=== PATIENT | female | born 1960 | race Caucasian/White ===

== ENCOUNTER → 2016-06-25 | Outpatient (CLI) | payer BC ==
[~2016-06-25] MED LIST: BAYER ASPIRIN C81 MG PO; LIPITOR40 MG PO; LISINOPRIL AND1 TAB PO; LISINOPRIL-HYDR1 TA3 PO
[2016-06-25 12:25] LABS: ALBUMIN 4.1 gm/dl (3.1-4.5); BILIRUBIN, DIRECT 0.2 mg/dL (0.0-0.2); BILIRUBIN, TOTAL 0.8 mg/dl (0.2-1.0); TOTAL PROTEIN 7.7 gm/dL (6.4-8.2)
[2016-06-26 16:10] LABS: CK-BB 0 % (0); CK-MB 0 % (0-3); CK-MM 99 % (97-100)
== END | disposition home or self-care (01) ==
LOC: LAB 05-16 14:48
PROVIDERS: Internal Medicine Cardiovascular Disease
DX: Z79.899 Other long term (current) drug therapy (principal)

== ENCOUNTER → 2019-05-03 | Outpatient (CLI) | payer OTHER | END | disposition home or self-care (01) | LOC: CARD 08:29 | DX: R00.1 Bradycardia, unspecified (principal) ==

== ENCOUNTER → 2019-05-07 | Outpatient (CLI) | payer OTHER | END | disposition home or self-care (01) | LOC: US 03:03 | DX: K76.0 Fatty (change of) liver, not elsewhere classified (principal); R94.5 Abnormal results of liver function studies ==

== ENCOUNTER → 2019-05-10 | Outpatient (CLI) | payer OTHER ==
[2019-05-10 13:05] LABS: THYROID STIM HORMONE (HS) 1.42 uIU/ml (0.358-4.75)
== END | disposition home or self-care (01) ==
LOC: LAB 10:46
PROVIDERS: Nurse Practitioner Family
DX: L65.9 Nonscarring hair loss, unspecified (principal)

== ENCOUNTER → 2021-01-15 | Outpatient (CLI) | payer OTHER ==
[2021-01-15 10:08] LABS: BASO % 0.4 % (0.0-1.0); EOS # 0.1 10*3/uL (0.0-0.4); HEMATOCRIT 40.9 % (37.0-47.0); LYMPH # 1.8 10*3/uL (1.3-4.4); LYMPH % 26.8 % (27.0-41.0); MEAN CELL VOLUME 93.4 fl (81.0-99.0); MEAN CORPUSCULAR HGB 31.3 pg (27.0-31.0); MEAN CORPUSCULAR HGB CONC 33.5 g/dl (33.0-37.0); MEAN PLATELET VOLUME 10.9 fl (9.6-12.3); MONO # 0.7 10*3/uL (0.1-1.0); MONO % 10.2 % (3.0-9.0); NEUT # 4.1 10*3/uL (2.3-7.9); PLATELET COUNT AUTOMATED 227 10*3/uL (130-400); RED BLOOD COUNT 4.38 10*6/uL (4.10-5.10); RED CELL DISTRI WIDTH 13.1 % (0-14.5); WHITE BLOOD COUNT 6.8 10*3/uL (4.8-10.8)
[2021-01-15 10:26] LABS: ALBUMIN 3.9 gm/dl (3.1-4.5); ALKALINE PHOSPHATASE 77 U/L (45-117); BUN 9 mg/dl (7-24); CHLORIDE 108 mmol/L (98-107); CHOLESTEROL 225 mg/dL (<200); CREATININE 0.79 mg/dL (0.55-1.02); LDL CHOLESTEROL 153 mg/dL (9-159); SGOT/AST 29 IU/L (3-35); SGPT/ALT 69 U/L (12-78); SODIUM 140 mmol/L (136-145); TOTAL PROTEIN 7.9 gm/dL (6.4-8.2); TRIGLYCERIDES 141 mg/dl (<150); URIC ACID 6.9 mg/dL (2.6-6.0)
[2021-01-16 04:06] LABS: CREATINE KINASE, TOTAL, SERUM 195 U/L (32-182)
[2021-01-16 11:07] LABS: CREATININE,URINE 69.7 mg/dL (Not Estab.)
[2021-01-16 15:07] LABS: CK-BB 0 % (0); CK-MB 0 % (0-3); CK-MM 100 % (97-100); MACRO TYPE 1 0 % (Not Observed); MACRO TYPE 2 0 % (Not Observed)
== END | disposition home or self-care (01) ==
LOC: LAB 09:35
PROVIDERS: ATTEND Family Medicine
DX: I10 Essential (primary) hypertension (principal)

== ENCOUNTER → 2021-02-01 | Outpatient (CLI) | payer OTHER | END | disposition home or self-care (01) | LOC: MAMMO 00:43 | PROVIDERS: ATTEND Family Medicine | DX: Z12.31 Encounter for screening mammogram for malignant neoplasm of breast (principal) ==

== ENCOUNTER → 2022-01-14 | Outpatient (CLI) | payer OTHER ==
[2022-01-14 11:19] LABS: BASO % 0.5 % (0.0-1.0); EOS # 0.1 10*3/uL (0.0-0.4); EOS % 1.3 % (1.0-4.0); HEMATOCRIT 42.5 % (37.0-47.0); LYMPH % 31.7 % (27.0-41.0); MEAN CORPUSCULAR HGB 31.1 pg (27.0-31.0); MEAN CORPUSCULAR HGB CONC 33.4 g/dl (33.0-37.0); MEAN PLATELET VOLUME 10.8 fl (9.6-12.3); MONO # 0.5 10*3/uL (0.1-1.0); MONO % 8.6 % (3.0-9.0); NEUT # 3.6 10*3/uL (2.3-7.9); NEUT % 57.3 % (47.0-73.0); PLATELET COUNT AUTOMATED 220 10*3/uL (130-400); RED BLOOD COUNT 4.57 10*6/uL (4.10-5.10); RED CELL DISTRI WIDTH 12.6 % (0-14.5); WHITE BLOOD COUNT 6.3 10*3/uL (4.8-10.8)
[2022-01-14 11:40] LABS: BUN 12 mg/dl (7-24); CHLORIDE 108 mmol/L (98-107); CHOLESTEROL 205 mg/dL (<200); CREATININE 0.72 mg/dL (0.55-1.02); POTASSIUM 3.9 mmol/L (3.5-5.1); SGOT/AST 32 IU/L (3-35); SGPT/ALT 79 U/L (12-78); SODIUM 140 mmol/L (136-145); TRIGLYCERIDES 133 mg/dl (<150); URIC ACID 6.8 mg/dL (2.6-6.0)
[2022-01-14 11:45] LABS: ALKALINE PHOSPHATASE 85 U/L (45-117); FREE T4 1.07 ng/dl (0.76-1.46); LDL CHOLESTEROL 141 mg/dL (9-159); TOTAL PROTEIN 7.8 gm/dL (6.4-8.2)
[2022-01-15 04:59] LABS: CREATINE KINASE, TOTAL, SERUM 233 U/L (32-182)
[2022-01-15 05:06] LABS: RHEUMATOID FACTOR <10.0 IU/mL (<14.0)
[2022-01-15 10:07] LABS: CREATININE,URINE 77.3 mg/dL (Not Estab.)
[2022-01-15 15:07] LABS: CK-BB 0 % (0); CK-MB 0 % (0-3); CK-MM 100 % (97-100); MACRO TYPE 1 0 % (Not Observed); MACRO TYPE 2 0 % (Not Observed)
== END | disposition home or self-care (01) ==
LOC: LAB 10:43
PROVIDERS: ATTEND Family Medicine
DX: Z00.00 Encounter for general adult medical examination without abnormal findings (principal); I10 Essential (primary) hypertension; M25.50 Pain in unspecified joint; Z79.899 Other long term (current) drug therapy

== ENCOUNTER → 2024-01-20 | Outpatient (CLI) | payer OTHER ==
[2024-01-20 07:54] LABS: BASO # 0.1 10*3/uL (0.0-0.1); BASO % 0.8 % (0.0-1.0); EOS # 0.1 10*3/uL (0.0-0.4); EOS % 1.7 % (1.0-4.0); HEMATOCRIT 40.3 % (37.0-47.0); MEAN CORPUSCULAR HGB 31.3 pg (27.0-31.0); MEAN PLATELET VOLUME 10.3 fl (9.6-12.3); MONO # 0.6 10*3/uL (0.1-1.0); MONO % 8.8 % (3.0-9.0); NEUT % 62.2 % (47.0-73.0); PLATELET COUNT AUTOMATED 208 10*3/uL (130-400); RED BLOOD COUNT 4.38 10*6/uL (4.10-5.10); RED CELL DISTRI WIDTH 12.9 % (0-14.5); WHITE BLOOD COUNT 6.5 10*3/uL (4.8-10.8)
[2024-01-20 08:00] LABS: BILIRUBIN Negative (Negative); BLOOD 1+ (Negative); CLARITY Cloudy (Clear); COLOR Yellow (Yellow); GLUCOSE Negative (Negative); KETONE Negative (Negative); LEUKO ESTERASE 3+ (Negative); NITRITE Negative (Negative); UROBILINOGEN 0.2 E.U./dl (0.0-1.0)
[2024-01-20 08:37] LABS: ALKALINE PHOSPHATASE 74 U/L (46-116); BUN 21 mg/dl (9-23); CHLORIDE 108 mmol/L (98-107); CHOLESTEROL 215 mg/dL (<200); FREE T4 1.16 ng/dl (0.89-1.76); LDL CHOLESTEROL 139 mg/dL (9-159); POTASSIUM 3.6 mmol/L (3.4-5.1); SGPT/ALT 17 U/L (5-49); TOTAL PROTEIN 7.4 gm/dL (6.0-8.0); TRIGLYCERIDES 150 mg/dl (<150); URIC ACID 8.3 mg/dL (3.1-7.8)
[2024-01-20 08:47] LABS: VITAMIN D, 25-HYDROXY 32.4 ng/mL (30-100)
[2024-01-20 09:05] LABS: BACTERIA 2+; EPITHELIAL CELLS 41-50; WBC TNTC wbc/hpf (0-5)
== END | disposition home or self-care (01) ==
LOC: LAB 07:31
PROVIDERS: ATTEND Family Medicine
DX: I10 Essential (primary) hypertension (principal); M25.50 Pain in unspecified joint

== ENCOUNTER 2024-09-25 02:11 | Inpatient (IN) | payer OTHER ==
[~2024-09-25] VITALS: Ht 167.6 cm; Wt 99.9 kg
[2024-09-25 02:25] VITALS: BP 155/92
[2024-09-25 02:48] LABS: BASO # 0.0 10*3/uL (0.0-0.1); BASO % 0.5 % (0.0-1.0); EOS # 0.1 10*3/uL (0.0-0.4); EOS % 1.7 % (1.0-4.0); MEAN CELL VOLUME 90.2 fl (81.0-99.0); MEAN CORPUSCULAR HGB 30.8 pg (27.0-31.0); MEAN PLATELET VOLUME 10.6 fl (9.6-12.3); MONO # 0.7 10*3/uL (0.1-1.0); MONO % 10.3 % (3.0-9.0); NEUT # 3.7 10*3/uL (2.3-7.9); NEUT % 57.6 % (47.0-73.0); NUCLEATED RED BLOOD CELL 0.0 % (0.0-0.0); NUCLEATED RED BLOOD CELL 0.0 10*3/uL (0.0-0.0); PLATELET COUNT AUTOMATED 217 10*3/uL (130-400); RED CELL DISTRI WIDTH 12.9 % (0-14.5)
[2024-09-25 02:59] LABS: ACT PARTIAL THROMBO TIME 25.5 SECONDS (20.0-32.1)
[2024-09-25 03:09] LABS: BUN 13 mg/dl (9-23); SGPT/ALT 28 U/L (5-49)
[2024-09-25] MEDS ORDERED: POTASSIUM CHLORIDE 20 MEQ TAB PO ONE (05:35)
[2024-09-25] MEDS ORDERED: COZAAR25 M1 PO (06:13)
[2024-09-25 06:20] VITALS: BP 147/64
[2024-09-25] MEDS ORDERED: HYDROCHLOROTHIA25 M1 PO (06:21)
[2024-09-25] MEDS ORDERED: BISACODYL 5 MG TAB PO PRN (06:35)
[2024-09-25] MEDS ORDERED: ACETAMINOPHEN 325 MG TAB PO PRN (06:35)
[2024-09-25] MEDS ORDERED: Ondansetron Hydrochloride 4 MG/2 ML VIAL IV PRN (06:35)
[2024-09-25] MEDS ORDERED: Acetaminophen/Hydrocodone 5 MG/325 MG TABLET PO PRN (06:35)
[2024-09-25] MEDS ORDERED: ACETAMINOPHEN 650 MG SUPP R PRN (06:35)
[2024-09-25] MEDS ORDERED: TEMAZEPAM 15 MG CAP PO PRN (06:35)
[2024-09-25] MEDS ORDERED: hydroCHLOROthiazide 25 MG TAB PO SCH (10:00)
[2024-09-25] MEDS ORDERED: ASPIRIN, CHEWABLE 81 MG TAB PO SCH (10:00)
[2024-09-25 10:09] VITALS: BP 148/72
[2024-09-25] MEDS ORDERED: POTASSIUM CHLORIDE 20 MEQ TAB PO SCH (10:45)
[2024-09-25] MEDS ORDERED: IOHEXOL 350 MG/ML 100 ML VIAL IV ONE (11:25)
[2024-09-25] MEDS ORDERED: SODIUM CHLORIDE 0.9% 100 ML BAG IV ONE (11:25)
[2024-09-25 18:05] VITALS: BP 162/87
[2024-09-25 20:00] VITALS: BP 157/76
[2024-09-25] MEDS ORDERED: ATORVASTATIN CALCIUM 40 MG TABLET PO SCH (22:00)
[2024-09-26] VITALS: BP 150/71
[2024-09-26 06:23] LABS: BASO # 0.0 10*3/uL (0.0-0.1); BASO % 0.6 % (0.0-1.0); EOS # 0.1 10*3/uL (0.0-0.4); EOS % 1.9 % (1.0-4.0); MEAN CELL VOLUME 91.9 fl (81.0-99.0); MEAN CORPUSCULAR HGB 30.9 pg (27.0-31.0); MEAN PLATELET VOLUME 10.9 fl (9.6-12.3); MONO # 0.7 10*3/uL (0.1-1.0); MONO % 10.5 % (3.0-9.0); NEUT # 3.7 10*3/uL (2.3-7.9); NEUT % 52.7 % (47.0-73.0); NUCLEATED RED BLOOD CELL 0.0 % (0.0-0.0); NUCLEATED RED BLOOD CELL 0.0 10*3/uL (0.0-0.0); PLATELET COUNT AUTOMATED 205 10*3/uL (130-400); RED CELL DISTRI WIDTH 13.1 % (0-14.5)
[2024-09-26 06:46] LABS: BUN 13 mg/dl (9-23); FREE T4 1.08 ng/dl (0.89-1.76); LDL CHOLESTEROL 123 mg/dL (9-159); SGPT/ALT 23 U/L (5-49)
[2024-09-26 07:36] LABS: VITAMIN D, 25-HYDROXY 42.2 ng/mL (30-100)
[2024-09-26 08:00] VITALS: BP 151/63
[2024-09-26 12:00] VITALS: BP 147/58
[2024-09-26 16:00] VITALS: BP 151/76
[2024-09-26 20:00] VITALS: BP 158/66
[2024-09-27 06:25] LABS: BASO # 0.0 10*3/uL (0.0-0.1); BASO % 0.6 % (0.0-1.0); EOS # 0.1 10*3/uL (0.0-0.4); EOS % 1.9 % (1.0-4.0); MEAN CELL VOLUME 92.3 fl (81.0-99.0); MEAN CORPUSCULAR HGB 31.0 pg (27.0-31.0); MEAN PLATELET VOLUME 10.8 fl (9.6-12.3); MONO # 0.7 10*3/uL (0.1-1.0); MONO % 9.9 % (3.0-9.0); NEUT # 3.8 10*3/uL (2.3-7.9); NEUT % 56.2 % (47.0-73.0); NUCLEATED RED BLOOD CELL 0.0 % (0.0-0.0); NUCLEATED RED BLOOD CELL 0.0 10*3/uL (0.0-0.0); PLATELET COUNT AUTOMATED 201 10*3/uL (130-400); RED CELL DISTRI WIDTH 13.1 % (0-14.5)
[2024-09-27 06:55] LABS: BUN 15 mg/dl (9-23)
[2024-09-27 08:00] VITALS: BP 150/52
[2024-09-27] MEDS ORDERED: hydroCHLOROthiazide 25 MG TAB PO SCH (10:00)
[2024-09-27 12:00] VITALS: BP 154/68
[2024-09-27] MEDS ORDERED: ATORVASTATIN CA40 M1 PO (13:28)
[2024-09-27] MEDS ORDERED: ASPIRIN ADULT L81 M2 PO (13:28)
== END 2024-09-27 14:57 | disposition home or self-care (01) | DRG 201 ==
LOC: ED 02:11 → EDHOLD 06:28 → 4E 06:28
PROVIDERS: Emergency Medicine; Internal Medicine; Student in an Organized Health Care Education/Training Program; ADMIT Student in an Organized Health Care Education/Training Program; ATTEND Student in an Organized Health Care Education/Training Program
DX: I48.91 Unspecified atrial fibrillation (principal); E87.6 Hypokalemia; R07.89 Other chest pain; E78.00 Pure hypercholesterolemia, unspecified; E80.6 Other disorders of bilirubin metabolism; R73.9 Hyperglycemia, unspecified; I10 Essential (primary) hypertension; K76.0 Fatty (change of) liver, not elsewhere classified; E66.812 Obesity, class 2; Z68.37 Body mass index [BMI] 37.0-37.9, adult; Z80.52 Family history of malignant neoplasm of bladder; Z68.35 Body mass index [BMI] 35.0-35.9, adult